=== PATIENT | male | born 1935 | race Two or more races ===

== ENCOUNTER 2023-03-20 00:14 | Inpatient (IN) | payer MEDICARE, BC ==
[2023-03-20] MEDS ORDERED: SODIUM CHLORIDE 0.9% 1,000 ML IV STA (00:57)
[2023-03-20 01:11] LABS: Basophils # (A) 0.1 k/uL (0-0.2); Basophils % (A) 1 %; Eosinophils # (A) 0.5 k/uL (0-0.7); Eosinophils % (A) 5 %; HCT 41.6 % (39.0-53.0); HGB 13.5 gm/dL (13.0-17.5); Lymphocytes # (A) 1.4 k/uL (1.0-4.8); Lymphocytes % (A) 14 %; MCH 32.1 pg (25.0-35.0); MCHC 32.6 g/dL (31.0-37.0); MCV 98.7 fL (80.0-100.0); Mean Platelet Volume 8.1; Monocytes # (A) 0.5 k/uL (0-1.0); Monocytes % (A) 5 %; Neutrophils # (A) 7.2 k/uL (1.3-7.7); Neutrophils % (A) 74 %; Platelet Count 235 k/uL (150-450); RBC 4.22 m/uL (4.30-5.90); RDW 12.8 % (11.5-15.5); WBC 9.7 k/uL (3.8-10.6)
[2023-03-20 01:22] LABS: ALT 26 U/L (4-49); AST 37 U/L (17-59); African American GFR (CKD) 71 (>60 ml/min/1.73 sqM); Albumin 4.2 g/dL (3.5-5.0); Alkaline Phosphatase 90 U/L (38-126); Anion Gap 9 mmol/L; Blood Urea Nitrogen 24 mg/dL (9-20); Calcium 9.6 mg/dL (8.4-10.2); Carbon Dioxide 29 mmol/L (22-30); Chloride 101 mmol/L (98-107); Glucose 115 mg/dL (74-99); Lipase 46 U/L (23-300); Non-African American GFR(CKD) 62 (>60 ml/min/1.73 sqM); Potassium 4.6 mmol/L (3.5-5.1); Sodium 139 mmol/L (137-145); Total Bilirubin 0.4 mg/dL (0.2-1.3); Total Protein 7.4 g/dL (6.3-8.2)
[2023-03-20] MEDS ORDERED: ONDANSETRON 4 MG/2 ML VIAL IVP STA (01:46)
[2023-03-20] MEDS ORDERED: MORPHINE SULFATE 4 MG/ML SYRINGE IVP STA (01:46)
--- NOTE | 2023-03-20 01:48 | ED ---
Abdominal Pain HPI - General Chief Complaint: Abdominal Pain Stated Complaint: Abdominal Pain Time Seen by Provider: 03/20/23 00:57 Source: patient Mode of arrival: EMS Limitations: no limitations - History of Present Illness Initial Comments: The 88-year-old gentleman with asked medical history of prostate cancer which was treated surgically, no other significant medical history, not on any daily medications. Patient presents the ER today with complaint of severe acute diffuse abdominal pain with some nausea but no vomiting. No change in bowel or bladder habits. No recent illness. No sick contacts. - Related Data Allergies Allergy/AdvReac Type Severity Reaction Status Date / Time No Known Allergies Allergy Verified 03/20/23 01:13 Review of Systems ROS Statement: Those systems with pertinent positive or pertinent negative responses have been documented in the HPI. ROS Other: All systems not noted in ROS Statement are negative. Past Medical History Past Medical History: Cancer, Osteoarthritis (OA), Prostate Disorder History of Any Multi-Drug Resistant Organisms: None Reported Past Surgical History: Hernia Repair, Prostate Surgery Additional Past Surgical History / Comment(s): skin cancer Past Psychological History: No Psychological Hx Reported Smoking Status: Never smoker Past Alcohol Use History: None Reported Past Drug Use History: None Reported General Exam Limitations: no limitations General appearance: alert Head exam: Present: atraumatic, normocephalic Eye exam: Present: normal appearance ENT exam: Present: normal exam Respiratory exam: Present: normal lung sounds bilaterally. Absent: respiratory distress Cardiovascular Exam: Present: normal rhythm, bradycardia GI/Abdominal exam: Present: distended, tenderness. Absent: guarding, rebound, rigid Rectal exam: Present: deferred Extremities exam: Present: normal inspection Neurological exam: Present: alert, oriented X3, other (Hard of hearing) Psychiatric exam: Present: normal affect, normal mood Skin exam: Present: warm, dry Course Vital Signs 03/20/23 00:25 Temperature 97.8 F Pulse Rate 57 L Respiratory 18 Rate Blood Pressure 133/73 O2 Sat by Pulse 97 Oximetry Medical Decision Making - Medical Decision Making Was pt. sent in by a medical professional or institution (, PA, CARPET CLEANING TECHNICIAN, urgent care, hospital, or shelter...) When possible be specific @ -[No] Did you speak to anyone other than the patient for history (EMS, parent, family, police, friend...)? What history was obtained from this source @ - Did you review nursing and triage notes (agree or disagree)? Why? @ -[I reviewed and agree with nursing and triage notes] Were old charts reviewed (outside hosp., previous admission, EMS record, old EKG, old radiological studies, urgent care reports/EKG's, shelter records)? Report findings @ -[No old charts were reviewed] Differential Diagnosis (chest pain, altered mental status, abdominal pain women, abdominal pain men, vaginal bleeding, weakness, fever, dyspnea, syncope, headache, dizziness, GI bleed, back pain, seizure, CVA, palpatations, mental health)? @ -Differential Abdominal Pain Men: Appendicitis, cholecystitis, diverticulosis, ischemic bowel, pancreatitis, hepatitis, UTI, gastroenteritis, AAA, incarcerated hernia, bowel obstruction, constipation, inflammatory bowel, hepatitis, peptic ulcer disease, splenic infarction, perforated viscus, testicular torsion, this is not meant to be an all-inclusive list EKG interpreted by me (3pts min.). @ -[As above] X-rays interpreted by me (1pt min.). @ -[None done] CT interpreted by me (1pt min.). @ -Small bowel appears dilated U/S interpreted by me (1pt. min.). @ -[None done] What testing was considered but not performed or refused? (CT, X-rays, U/S, labs)? Why? @ -[None] What meds were considered but not given or refused? Why? @ -[None] Did you discuss the management of the patient with other professionals (professionals i.e. , PA, CARPET CLEANING TECHNICIAN, lab, RT, psych nurse, mental health social worker, route delivery manager, teacher, food safety officer, medical case manager)? Give summary @ -[No] Was smoking cessation discussed for >3mins.? @ -[No] Was critical care preformed (if so, how long)? @ -[No] Were there social determinants of health that impacted care today? How? (Homelessness, low income, unemployed, alcoholism, drug addiction, transportation, low edu. Level, literacy, decrease access to med. care, [facility], rehab)? @ -[No] Was there de-escalation of care discussed even if they declined (Discuss DNR or withdrawal of care, Hospice)? DNR status @ -Code status was discussed patient does want to be DO NOT RESUSCITATE would not want to be placed on life support What co-morbidities impacted this encounter? (DM, HTN, Smoking, COPD, CAD, Cancer, CVA, ARF, Chemo, Hep., AIDS, mental health diagnosis, sleep apnea, morbid obesity)? @ -[None] Was patient admitted / discharged? Hospital course, mention meds given and route, prescriptions, significant lab abnormalities, going to OR and other pertinent info. @ -Admit The patient was seen and evaluated, history is obtained from the patient, history and physical exam are concerning for tender abdominal distention, labs and computed tomography scan were obtained. Observed baseline computed tomogr aphy scan had evidence of a small bowel obstruction. Patient was agreeable to supportive care with NG tube placement observation nothing by mouth diet and IV fluids. Upon discussion of admission patient was clear that he would want to BE made DO NOT RESUSCITATE he would not want to be placed on life support. These orders were placed. Patient was admitted to the hospital with surgeon on consult. Undiagnosed new problem with uncertain prognosis? @ -Yes Drug Therapy requiring intensive monitoring for toxicity (Heparin, Nitro, Insulin, Cardizem)? @ -No Were any procedures done? @ -NG tube placement Diagnosis/symptom? @ -Small bowel obstruction Acute, or Chronic, or Acute on Chronic? @ -Acute Uncomplicated (without systemic symptoms) or Complicated (systemic symptoms)? @ -[default] Side effects of treatment? @ -[No] Exacerbation, Progression, or Severe Exacerbation? @ -[No] Poses a threat to life or bodily function? How? (Chest pain, [place], CO, pneumonia, PE, COPD, DKA, ARF, appy, cholecystitis, CVA, Diverticulitis, Homicidal, Suicidal, threat to staff... and all critical care pts) @ -Yes - Lab Data Result diagrams: 03/20/23 01:01 03/20/23 01:01 Lab Results 03/20/23 03/20/23 03/20/23 Range/Units 01:01 01:01 01:01 WBC 9.7 (3.8-10.6) k/uL RBC 4.22 L (4.30-5.90) m/uL Hgb 13.5 (13.0-17.5) gm/dL Hct 41.6 (39.0-53.0) % MCV 98.7 (80.0-100.0) fL MCH 32.1 (25.0-35.0) pg MCHC 32.6 (31.0-37.0) g/dL RDW 12.8 (11.5-15.5) % Plt Count 235 (150-450) k/uL MPV 8.1 Neutrophils % 74 % Lymphocytes % 14 % Monocytes % 5 % Eosinophils % 5 % Basophils % 1 % Neutrophils # 7.2 (1.3-7.7) k/uL Lymphocytes # 1.4 (1.0-4.8) k/uL Monocytes # 0.5 (0-1.0) k/uL Eosinophils # 0.5 (0-0.7) k/uL Basophils # 0.1 (0-0.2) k/uL Sodium 139 (137-145) mmol/L Potassium 4.6 (3.5-5.1) mmol/L Chloride 101 (98-107) mmol/L Carbon Dioxide 29 (22-30) mmol/L Anion Gap 9 mmol/L BUN 24 H (9-20) mg/dL Creatinine 1.07 (0.66-1.25) mg/dL Est GFR (CKD-EPI)AfAm 71 (>60 ml/min/1.73 sqM) Est GFR (CKD-EPI)NonAf 62 (>60 ml/min/1.73 sqM) Glucose 115 H (74-99) mg/dL Plasma Lactic Acid David 1.6 (0.7-2.0) mmol/L Calcium 9.6 (8.4-10.2) mg/dL Total Bilirubin 0.4 (0.2-1.3) mg/dL AST 37 (17-59) U/L ALT 26 (4-49) U/L Alkaline Phosphatase 90 (38-126) U/L Total Protein 7.4 (6.3-8.2) g/dL Albumin 4.2 (3.5-5.0) g/dL Lipase 46 (23-300) U/L Disposition Clinical Impression: SBO (small bowel obstruction) Disposition: ADMITTED IP TO THIS [facility] Condition: Serious Is patient prescribed a controlled substance at d/c from ED?: No Referrals: Ezequiel Blevins MD [Primary Care Provider] - 1-2 days
--- NOTE | 2023-03-20 02:26 | CT ---
EXAM: CT Abdomen and Pelvis With Intravenous Contrast CLINICAL HISTORY: ITS.REASON CT Reason: abdominal pain TECHNIQUE: Axial computed tomography images of the abdomen and pelvis with intravenous contrast. CTDI is 14.13 mGy and DLP is 763 mGy-cm. This CT exam was performed using one or more of the following dose reduction techniques: automated exposure control, adjustment of the mA and/or kV according to patient size, and/or use of iterative reconstruction technique. COMPARISON: No previous studies. FINDINGS: Lung bases: Subsegmental atelectasis and scarring noted at the lung bases. Heart: Heart is normal in size. Mediastinum: Moderate hiatal hernia. Fluid-filled distal esophagus. The patient may be at risk for aspiration. ABDOMEN: Liver: Fatty liver. Gallbladder and bile ducts: Unremarkable. No calcified stones. No ductal dilation. Pancreas: Unremarkable. No mass. No ductal dilation. 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 Adrenals: Unremarkable. No mass. Kidneys and ureters: Unremarkable. No renal calculus or hydronephrosis. Stomach and bowel: Fluid-filled dilated loops of small bowel are noted extending towards the right lower quadrant compatible with small bowel obstruction. No mucosal thickening. PELVIS: Appendix: Appendix is seen on coronal image 50 and is unremarkable. Bladder: Unremarkable. No mass. Reproductive: Status post prostatectomy. ABDOMEN and PELVIS: Intraperitoneal space: Unremarkable. No free air. No significant fluid collection. Bones/joints: No acute fracture. No dislocation. Soft tissues: Unremarkable. Vasculature: A prominent varix is noted extending to the lingular region seen on series 202 image 16. Portal vein is patent. Atherosclerotic disease of the abdominal aorta without change in caliber. Flow is noted within the celiac, SMA, the renal arteries, and MARCIO. No abdominal aortic aneurysm. Lymph nodes: Unremarkable. No retroperitoneal lymphadenopathy. Other findings: Surgical consultation is advised. IMPRESSION: 1. 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 2. Dilated fluid-filled loops of small bowel extending to the right lower quadrant suggestive of small bowel obstruction. 3. Surgical consultation is highly advised. <MYCVCSECTION> Communications: 03/20/23 02:31 Call Doctor Regarding Above results, called Dr. Wallace on 03/20 02:31 (-05:00)
[2023-03-20] MEDS ORDERED: MIDAZOLAM 1 MG/ML 5 ML VIAL IV STA (02:49)
[2023-03-20] MEDS ORDERED: ONDANSETRON 4 MG/2 ML VIAL IVP PRN (03:06)
[2023-03-20] MEDS ORDERED: MORPHINE SULFATE 4 MG/ML SYRINGE IV PRN (03:06)
[2023-03-20] MEDS ORDERED: NALOXONE 0.4 MG/ML 1 ML VIAL IV PRN (03:06)
[2023-03-20 03:21] LABS: Appearance,Urine Clear (Clear); Bilirubin,Urine Negative (Negative); Blood,Urine Negative (Negative); Color,Urine Light Yellow; Glucose,Urine (UA) Negative (Negative); Ketones,Urine Negative (Negative); Leukocyte Esterase,Urine Negative (Negative); Nitrite,Urine Negative (Negative); Protein,Urine Negative (Negative); Specific Gravity,Urine 1.035 (1.001-1.035); Urobilinogen,Urine <2.0 mg/dL (<2.0)
[2023-03-20] MEDS: SODIUM CHLORIDE 0.9% 1,000 ML IV SCH ×2 (03:55→18:27)
--- NOTE | 2023-03-20 04:49 | XR ---
EXAM: XR Chest, 1 View CLINICAL HISTORY: None. TECHNIQUE: Frontal view of the chest. COMPARISON: No relevant prior studies available. FINDINGS: Lungs: An abnormal density seen in the left lung base. 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 Pleural space: Unremarkable. No pneumothorax or pleural fluid. Heart: Unremarkable. No cardiomegaly. Mediastinum: Unremarkable. Normal mediastinal contour. Bones/joints: No acute findings. Tubes, lines and devices: A gastric tube is seen partially looped in the proximal aspect of the stomach. IMPRESSION: A gastric tube is seen partially looped in the proximal aspect of the stomach.
[2023-03-20] MEDS: PANTOPRAZOLE 40 MG/10 ML VIAL IV SCH (08:25)
[2023-03-20] MEDS ORDERED: IOPAMIDOL CONTRAST (ORAL USE) VIAL PO PRN (11:47)
--- NOTE | 2023-03-20 11:47 | P.GSCN ---
History of Present Illness Consult date: 03/20/23 Reason for Consult: small bowel obstruction History of present illness: this 78-year-old male who was admitted to the hospital complaints of abdominal pain nausea. Patient's computed tomography scan stress of small bowel obstruction. Patient appears history of prostatectomy. Patient has received nasogastric tube decompression overnight. He states he feels better. Past Medical History Past Medical History: Cancer, Osteoarthritis (OA), Prostate Disorder History of Any Multi-Drug Resistant Organisms: None Reported Past Surgical History: Hernia Repair, Prostate Surgery Additional Past Surgical History / Comment(s): skin cancer Past Anesthesia/Blood Transfusion Reactions: No Reported Reaction Past Psychological History: No Psychological Hx Reported Smoking Status: Never smoker Past Alcohol Use History: None Reported Past Drug Use History: None Reported Medications and Allergies Home Medications Medication Instructions Recorded Confirmed Type Multivitamins, Thera [Multivitamin 1 tab PO DAILY 03/20/23 03/20/23 History (formulary)] Allergies Allergy/AdvReac Type Severity Reaction Status Date / Time No Known Allergies Allergy Verified 03/20/23 11:18 Surgical - Exam Vital Signs Temp Pulse Resp BP Pulse Ox 97.8 F 57 L 18 133/73 97 03/20/23 00:25 03/20/23 00:25 03/20/23 00:25 03/20/23 00:25 03/20/23 00:25 - General well developed, well nourished, no distress - Eyes PERRL - ENT normal pinna - Neck no masses - Respiratory normal expansion - Cardiovascular Rhythm: regular - Abdomen Abdomen: soft, non tender Results - Labs 03/20/23 01:01 03/20/23 01:01 Abnormal Lab Results - Last 24 Hours (Table) 03/20/23 03/20/23 Range/Units 01:01 01:01 RBC 4.22 L (4.30-5.90) m/uL BUN 24 H (9-20) mg/dL Glucose 115 H (74-99) mg/dL Diabetes panel 03/20/23 Range/Units 01:01 Sodium 139 (137-145) mmol/L Potassium 4.6 (3.5-5.1) mmol/L Chloride 101 (98-107) mmol/L Carbon Dioxide 29 (22-30) mmol/L BUN 24 H (9-20) mg/dL Creatinine 1.07 (0.66-1.25) mg/dL Glucose 115 H (74-99) mg/dL Calcium 9.6 (8.4-10.2) mg/dL AST 37 (17-59) U/L ALT 26 (4-49) U/L Alkaline Phosphatase 90 (38-126) U/L Total Protein 7.4 (6.3-8.2) g/dL Albumin 4.2 (3.5-5.0) g/dL Calcium panel 03/20/23 Range/Units 01:01 Calcium 9.6 (8.4-10.2) mg/dL Albumin 4.2 (3.5-5.0) g/dL Pituitary panel 03/20/23 Range/Units 01:01 Sodium 139 (137-145) mmol/L Potassium 4.6 (3.5-5.1) mmol/L Chloride 101 (98-107) mmol/L Carbon Dioxide 29 (22-30) mmol/L BUN 24 H (9-20) mg/dL Creatinine 1.07 (0.66-1.25) mg/dL Glucose 115 H (74-99) mg/dL Calcium 9.6 (8.4-10.2) mg/dL Adrenal panel 03/20/23 Range/Units 01:01 Sodium 139 (137-145) mmol/L Potassium 4.6 (3.5-5.1) mmol/L Chloride 101 (98-107) mmol/L Carbon Dioxide 29 (22-30) mmol/L BUN 24 H (9-20) mg/dL Creatinine 1.07 (0.66-1.25) mg/dL Glucose 115 H (74-99) mg/dL Calcium 9.6 (8.4-10.2) mg/dL Total Bilirubin 0.4 (0.2-1.3) mg/dL AST 37 (17-59) U/L ALT 26 (4-49) U/L Alkaline Phosphatase 90 (38-126) U/L Total Protein 7.4 (6.3-8.2) g/dL Albumin 4.2 (3.5-5.0) g/dL Assessment and Plan Assessment: small bowel obstruction most likely due to adhesions. Patient continue nasogastric tube decompression. We'll repeat CAT scan performed in the a.m.
--- NOTE | 2023-03-20 13:50 | P.HPIM ---
History of Present Illness H&P Date: 03/20/23 History of present illness; patient is a 88-year-old gentleman with past medical history significant for prostate cancer, who presented to the ER because of generalized abdominal pain. Patient stated that he was all right yesterday when he started noticing generalized abdominal pain. Pain was intermittent, associated with nausea but no vomiting. Denied any recent change in bowel movements. Denies any blood in the stools. Denies any recent history of change in eating habits. No complaint of increased frequency or burning micturition. Denies any fever or chills at home. Because of this abdominal pain, patient was brought to the ER Initial lab work done in the ER showed WBC 9.7, hemoglobin 13.5, platelet count 235, sodium 139, potassium 4.6, BUN 24, creatinine 1.07, AST 37, ALT 26, UA negative for any infection Chest x-ray done in the ER showed gastric tube seen partially located in the proximal stomach CT abdomen pelvis done showed proximal varix at the left lung base extending into the lingular region. Dilated fluid-filled small bowel extending to the ri ght lower quadrant suggestive for small bowel obstruction After reviewing the computed tomography scan of the abdomen, NG tube was placed Patient admitted to medicine service REVIEW OF SYSTEMS: CONSTITUTIONAL: No fever, no malaise, no fatigue. HEENT: No recent visual problems or hearing problems. Denied any sore throat. CARDIOVASCULAR: No chest pain, orthopnea, PND, no palpitations, no syncope. PULMONARY: No shortness of breath, no cough, no hemoptysis. GASTROINTESTINAL: As mentioned above NEUROLOGICAL: No headaches, no weakness, no numbness. HEMATOLOGICAL: Denies any bleeding or petechiae. GENITOURINARY: Denies any burning micturition, frequency, or urgency. MUSCULOSKELETAL/RHEUMATOLOGICAL: Denies any joint pain, swelling, or any muscle pain. ENDOCRINE: Denies any polyuria or polydipsia. The rest of the 14-point review of systems is negative. PHYSICAL EXAMINATION: GENERAL: The patient is alert and oriented x3, not in any acute distress. Well developed, well nourished. NG tube in place HEENT: Pupils are round and equally reacting to light. EOMI. No scleral icterus. No conjunctival pallor. Normocephalic, atraumatic. No pharyngeal erythema. No thyromegaly. CARDIOVASCULAR: S1 and S2 present. No murmurs, rubs, or gallops. PULMONARY: Chest is clear to auscultation, no wheezing or crackles. ABDOMEN: Soft, nontender, nondistended, sluggish bowel sounds. No palpable organomegaly. MUSCULOSKELETAL: No joint swelling or deformity. EXTREMITIES: No cyanosis, clubbing, or pedal edema. NEUROLOGICAL: Gross neurological examination did not reveal any focal deficits. SKIN: No rashes. Assessment and plan Abdominal pain Small bowel obstruction History of prostate cancer Monitor vital signs Monitor CBC Monitor CMP Continue NG tube Continue antiemetics Continue IV fluids Serial abdominal exams Monitor electrolytes. Keep patient nothing by mouth Gen. surgery consulted Labs and medication were reviewed.. Continue same treatment. Continue with symptomatic treatment. Resume home medication. Monitor labs and vitals. DVT and GI prophylaxis. Further recommendations as per clinical course of the patient Dictation was produced using [employer] dictation software. please excuse any grammatical, word or spelling errors. Past Medical History Past Medical History: Cancer, Osteoarthritis (OA), Prostate Disorder History of Any Multi-Drug Resistant Organisms: None Reported Past Surgical History: Hernia Repair, Prostate Surgery Additional Past Surgical History / Comment(s): skin cancer Past Anesthesia/Blood Transfusion Reactions: No Reported Reaction Past Psychological History: No Psychological Hx Reported Smoking Status: Never smoker Past Alcohol Use History: None Reported Past Drug Use History: None Reported Medications and Allergies Home Medications Medication Instructions Recorded Confirmed Type Multivitamins, Thera [Multivitamin 1 tab PO DAILY 03/20/23 03/20/23 History (formulary)] Allergies Allergy/AdvReac Type Severity Reaction Status Date / Time No Known Allergies Allergy Verified 03/20/23 11:18 Physical Exam Vitals: Vital Signs Temp Pulse Pulse Resp BP BP Pulse Ox 03/20/23 07:00 97.4 F L 63 17 117/61 93 L 03/20/23 03:49 98.2 F 62 18 128/74 98 03/20/23 00:25 97.8 F 57 L 18 133/73 97 Intake and Output 03/19/23 03/20/23 03/20/23 22:59 06:59 14:59 Other: # Voids 0 Weight 71.214 kg Results CBC & Chem 7: 03/20/23 01:01 03/20/23 01:01 Labs: Abnormal Lab Results - Last 24 Hours (Table) 03/20/23 03/20/23 Range/Units 01:01 01:01 RBC 4.22 L (4.30-5.90) m/uL BUN 24 H (9-20) mg/dL Glucose 115 H (74-99) mg/dL Thrombosis Risk Factor Assmnt - Choose All That Apply Any of the Below Risk Factors Present?: No Other Risk Factors: No Each Risk Factor Represents 3 Points: Age 75 years or older Thrombosis Risk Factor Assessment Total Risk Factor Score: 3 Thrombosis Risk Factor Assessment Level: Very Low Risk
[2023-03-21] MEDS: PANTOPRAZOLE 40 MG/10 ML VIAL IV SCH (09:26)
[2023-03-21] MEDS: SODIUM CHLORIDE 0.9% 1,000 ML IV SCH (09:26)
[2023-03-21 10:59] LABS: ALT 16 U/L (10-49); AST 24 U/L (14-35); Albumin 3.3 g/dL (3.8-4.9); Albumin/Globulin Ratio 1.43 Ratio (1.60-3.17); Alkaline Phosphatase 82 U/L (41-126); BUN/Creat Ratio 16.44 Ratio (12.00-20.00); Blood Urea Nitrogen 14.8 mg/dL (9.0-27.0); Carbon Dioxide 24.4 mmol/L (21.6-31.8); Chloride 108 mmol/L (96-109); Globulin 2.3 g/dL (1.6-3.3); Glucose 86 mg/dL (70-110); Potassium 4.3 mmol/L (3.5-5.5); Sodium 142 mmol/L (135-145); Total Bilirubin 0.7 mg/dL (0.3-1.2); Total Protein 5.6 g/dL (6.2-8.2)
[2023-03-21 11:00] LABS: Basophils # (A) 0.07 X 10*3/uL (0.00-0.10); Eosinophils # (A) 0.22 X 10*3/uL (0.04-0.35); HCT 36.7 % (39.6-50.0); HGB 12.2 g/dL (13.0-17.0); Lymphocytes # (A) 1.33 X 10*3/uL (0.90-5.00); Lymphocytes % (A) 18.2 %; MCH 32.4 pg (27.0-32.0); MCHC 33.2 g/dL (32.0-37.0); MCV 97.6 FL (80.0-97.0); Mean Platelet Volume 10.8 FL (9.5-12.2); Monocytes # (A) 0.51 X 10*3/uL (0.20-1.00); NRBC Per 100 WBC 0 X 10*3/uL (0.00-0.01); Neutrophils # (A) 5.17 X 10*3/uL (1.80-7.70); Neutrophils % (A) 70.5 %; Platelet Count 220 X 10*3/uL (140-440); RBC 3.76 X 10*6/uL (4.40-5.60); RDW 13.2 % (11.5-14.5); WBC 7.32 X 10*3/uL (4.50-10.00)
--- NOTE | 2023-03-21 12:33 | P.PN ---
Subjective Progress Note Date: 03/21/23 patient is a 88-year-old gentleman with past medical history significant for prostate cancer, who presented to the ER because of generalized abdominal pain. Patient stated that he was all right yesterday when he started noticing generalized abdominal pain. Pain was intermittent, associated with nausea but no vomiting. Denied any recent change in bowel movements. Denies any blood in the stools. Denies any recent history of change in eating habits. No complaint of increased frequency or burning micturition. Denies any fever or chills at home. Because of this abdominal pain, patient was brought to the ER Initial lab work done in the ER showed WBC 9.7, hemoglobin 13.5, platelet count 235, sodium 139, potassium 4.6, BUN 24, creatinine 1.07, AST 37, ALT 26, UA negative for any infection Chest x-ray done in the ER showed gastric tube seen partially located in the proximal stomach CT abdomen pelvis done showed proximal varix at the left lung base extending into the lingular region. Dilated fluid-filled small bowel extending to the right lower quadrant suggestive for small bowel obstruction After reviewing the computed tomography scan of the abdomen, NG tube was placed Patient admitted to medicine service 03/21. Patient seen and examined. Patient is passing gas. No bowel movement yet. Denies abdominal pain. NG tube in place REVIEW OF SYSTEMS: CONSTITUTIONAL: No fever, no malaise,. CARDIOVASCULAR: No chest pain, no palpitations, no syncope. PULMONARY: No shortness of breath, no cough, GASTROINTESTINAL: As mentioned above NEUROLOGICAL: No headaches, no weakness, PHYSICAL EXAMINATION: GENERAL: The patient is alert and oriented x3, not in any acute distress. Well developed, well nourished. HEENT: Pupils are round and equally reacting to light. EOMI. No scleral icterus. No conjunctival pallor. Normocephalic, atraumatic. No pharyngeal erythema. No thyromegaly. CARDIOVASCULAR: S1 and S2 present. No murmurs, rubs, or gallops. PULMONARY: Chest is clear to auscultation, no wheezing or crackles. ABDOMEN: Soft, nontender, nondistended, normoactive bowel sounds. No palpable organomegaly. MUSCULOSKELETAL: No joint swelling or deformity. EXTREMITIES: No cyanosis, clubbing, or pedal edema. NEUROLOGICAL: Gross neurological examination did not reveal any focal deficits. SKIN: No rashes. Assessment and plan Abdominal pain Small bowel obstruction History of prostate cancer Monitor vital signs Monitor CBC Monitor CMP Continue NG tube Continue antiemetics Continue IV fluids Serial abdominal exams Monitor electrolytes. Keep patient nothing by mouth Gen. surgery following Labs and medication were reviewed.. Continue same treatment. Continue with symptomatic treatment. Resume home medication. Monitor labs and vitals. DVT and GI prophylaxis. Further recommendations as per clinical course of the patient Dictation was produced using [employer] dictation software. please excuse any grammatical, word or spelling errors. Objective - Vital Signs Vital signs: Vital Signs Temp 98.4 F 03/21/23 08:00 Pulse 61 03/21/23 08:00 Resp 14 03/21/23 08:00 BP 138/61 03/21/23 08:00 Pulse Ox 94 L 03/21/23 08:00 FiO2 Intake & Output 03/20/23 03/21/23 03/21/23 18:59 06:59 18:59 Output Total 900 275 Balance -900 -275 Output: Gastric Drainage 300 Urine 600 275 Other: Voiding Method Urinal # Voids 300 - Labs CBC & Chem 7: 03/21/23 06:32 03/21/23 06:32
--- NOTE | 2023-03-21 12:36 | P.PN ---
Subjective Progress Note Date: 03/21/23 CHIEF COMPLAINT: Small bowel obstruction HISTORY OF PRESENT ILLNESS: The patient denies any abdominal pain. Denies any nausea. He is having a small amount of flatus. NG tube with 300 mL output yesterday. Afebrile. WBC 7.3 hgb 12.2 platelets 220 sodium 142 potassium is 4.3 creatinine 0.9 PHYSICAL EXAM: VITAL SIGNS: Reviewed. GENERAL: Well-developed in no acute distress. ABDOMEN: Soft. Nondistended. Nontender. NEUROLOGIC: Alert and oriented. Cranial nerves II through XII grossly intact. ASSESSMENT: 1. Small bowel obstruction likely due to adhesions PLAN: -Repeat Computed tomography scan abdomen and pelvis with oral contrast scheduled for today -Continue NG tube for decompression -Keep patient nothing by mouth -Encourage patient to increase activity level Physician Terminal Operations Manager note has been reviewed by physician. Signing provider agrees with the documented findings, assessment, and plan of care. Objective - Vital Signs Vital signs: Vital Signs Temp 98.4 F 03/21/23 08:00 Pulse 61 03/21/23 08:00 Resp 14 03/21/23 08:00 BP 138/61 03/21/23 08:00 Pulse Ox 94 L 03/21/23 08:00 FiO2 Intake & Output 03/20/23 03/21/23 03/21/23 18:59 06:59 18:59 Output Total 900 275 Balance -900 -275 Output: Gastric Drainage 300 Urine 600 275 Other: Voiding Method Urinal # Voids 300 - Labs CBC & Chem 7: 03/21/23 06:32 03/21/23 06:32
--- NOTE | 2023-03-21 14:47 | XR ---
EXAMINATION TYPE: XR chest 1V confirm line plcmt DATE OF EXAM: 03/21/2023 2:14 PM CLINICAL INDICATION:Male, 88 years old with history of NG tube Placement; COMPARISON: CT 03/20/2023 TECHNIQUE: XR chest 1V confirm line plcmt Frontal view of the chest. FINDINGS: Lungs/Pleura: There is no evidence of pleural effusion, focal consolidation, or pneumothorax. Left l ower lung is vascular malformation is visualized. Increased lucency in the lung apices. Pulmonary vascularity: Unremarkable. Heart/mediastinum: Cardiomediastinal silhouette is unremarkable. Musculoskeletal: No acute osseous pathology. Other findings: None Lines/Tubes: Nasogastric tube with side-port projecting over the distal esophagus. IMPRESSION: 1. Nasogastric tube and the distal esophagus consider advancement of at least 11 cm for optimal plac ement. 2. 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 3. COPD changes.
[2023-03-21] MEDS: IOPAMIDOL CONTRAST (ORAL USE) VIAL PO PRN ×2 (15:30→16:30)
--- NOTE | 2023-03-21 18:08 | CT ---
EXAMINATION TYPE: CT abdomen pelvis w con CT DLP: 563.4 mGycm, Automated exposure control for dose reduction was used. DATE OF EXAM: 03/21/2023 5:25 PM COMPARISON: CT abdomen pelvis most recent from 03/20/2023. CLINICAL INDICATION:Male, 88 years old with history of small bowel obstruction; SBO TECHNIQUE: Axial CT of the ;CT abdomen pelvis w con;Sagittal and coronal reformats were created on a separate workstation. Contrast used:100 mL of Isovue 300 with IV Contrast, (none if empty) Oral contrast used: with Oral Contrast (none if empty) FINDINGS: LOWER CHEST: Redemonstration of suspected left lingula vascular malformation partially visualized. Tr trina bilateral pleural effusions. Atherosclerosis of the coronary arteries. ABDOMEN LIVER: Unremarkable GALLBLADDER AND BILE DUCTS: Layering increased density possibly relating to vicarious excretion of co ntrast versus gallstones. PANCREAS: Unremarkable. SPLEEN: Unremarkable. ADRENAL GLANDS: Unremarkable. KIDNEYS AND URETERS: No evidence of hydronephrosis or renal calculus. The ureters are unremarkable. PELVIS BLADDER: Unremarkable REPRODUCTIVE: Unremarkable. ABDOMEN & PELVIS STOMACH AND BOWEL: Oral contrast extends to the splenic flexure of the colon. No evidence of bowel ob struction. Small hiatal hernia. The appendix is normal. Moderate amount stool in the rectum. Nasogast frank tube terminating in the gastric lumen. PERITONEUM/RETROPERITONEUM: No evidence of pneumoperitoneum or free fluid. VASCULATURE: Mild atherosclerotic calcifications are present throughout the abdominal aorta and its b ranches. No evidence of aortic aneurysm. MUSCULOSKELETAL: No acute osseous abnormalities LYMPH NODES: No gross evidence for lymphadenopathy. SOFT TISSUE/ABDOMINAL WALL: Unremarkable IMPRESSION: 1. There is no evidence of small bowel obstruction oral contrast extends to the splenic flexure of t he colon. 2. Small hiatal hernia. 3. Nasogastric tube in appropriate position. 4. 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
[2023-03-22] MEDS: SODIUM CHLORIDE 0.9% 1,000 ML IV SCH ×2 (01:30→08:42)
[2023-03-22 08:30] VITALS: RESP 18
[2023-03-22] MEDS: PANTOPRAZOLE 40 MG/10 ML VIAL IV SCH (08:39)
--- NOTE | 2023-03-22 14:03 | P.PN ---
Subjective Progress Note Date: 03/22/23 CHIEF COMPLAINT: Small bowel obstruction HISTORY OF PRESENT ILLNESS: Patient sitting up in bed. He tolerated the full liquids. He does report some mild bloating after eating. Denies any abdominal pain. Denies any nausea or vomiting. He is having a small amount of flatus. No bowel movement yet. Computed tomography scan abdomen and pelvis from yesterday has shows no evidence of small bowel obstruction oral contrast extends to the splenic flexure of the colon. NG tube was discontinued yesterday. Afebrile. WBC is 7.32 PHYSICAL EXAM: VITAL SIGNS: Reviewed. GENERAL: Well-developed in no acute distress. ABDOMEN: Soft. Nondistended. Nontender. NEUROLOGIC: Alert and oriented. Cranial nerves II through XII grossly intact. ASSESSMENT: 1. Small bowel obstruction likely due to adhesions. Resolving with conservative management PLAN: -Patient can be discharged from surgical standpoint -Recommend to slowly advance diet as tolerated -Encourage patient to ambulate Physician Bindery Machine Setter note has been reviewed by physician. Signing provider agrees with the documented findings, assessment, and plan of care. Objective - Vital Signs Vital signs: Vital Signs Temp 97.8 F 03/22/23 08:00 Pulse 75 03/22/23 08:00 Resp 18 03/22/23 08:00 BP 138/65 03/22/23 08:00 Pulse Ox 94 L 03/22/23 08:00 FiO2 Intake & Output 03/21/23 03/22/23 03/22/23 18:59 06:59 18:59 Intake Total 180 Output Total 300 Balance -300 180 Intake: Oral 180 Output: Urine 300 Other: Voiding Method Toilet Urinal # Voids 3 - Labs CBC & Chem 7: 03/21/23 06:32 03/21/23 06:32 Labs: Abnormal Lab Results - Last 24 Hours (Table) 03/21/23 03/21/23 Range/Units 06:32 06:32 RBC 3.76 L (4.40-5.60) X 10*6/uL Hgb 12.2 L (13.0-17.0) g/dL Hct 36.7 L (39.6-50.0) % MCV 97.6 H (80.0-97.0) FL MCH 32.4 H (27.0-32.0) pg Total Protein 5.6 L (6.2-8.2) g/dL Albumin 3.3 L (3.8-4.9) g/dL Albumin/Globulin Ratio 1.43 L (1.60-3.17) Ratio
[2023-03-22 14:39] VITALS: BP 128/68; PULSE 59; TEMP 97.4
--- NOTE | 2023-03-23 16:49 | P.DS ---
Providers Date of admission: 03/20/23 03:06 Attending physician: Zeinab Olson Consults: 03/20/23 03:06 Consult Physician Urgent Consulting Provider: Josh Montaño Consult Reason/Comments: sbo Do you want consulting provider notified?: Yes, Notify in am Primary care physician: Ezequiel Blevins Hospital Course: Final Diagnosis Abdominal pain Small bowel obstruction resolved History of prostate cancer DO NOT RESUSCITATE/DO NOT INTUBATE Discharge Disposition Patient is stable for discharge home. Patient recommended to continue on bowel regimen daily to avoid constipation. Follow up with PCP. Hospital Course This is an 88-year-old gentleman with past medical history significant for prostate cancer, who presented to the ER because of generalized abdominal pain. Pain was intermittent, associated with nausea but no vomiting. Denied any recent change in bowel movements. Denies any blood in the stools. Denies any recent history of change in eating habits. No complaint of increased frequency or burning micturition. Denies any fever or chills at home. Because of this abdominal pain, patient was brought to the ER. CT abdomen pelvis done showed proximal varix at the left lung base extending into the lingular region. Dilated fluid-filled small bowel extending to the right lower quadrant suggestive for small bowel obstruction. Initial lab work done in the ER showed WBC 9.7, hemoglobin 13.5, platelet count 235, sodium 139, potassium 4.6, BUN 24, creatinine 1.07, AST 37, ALT 26. UA negative for any infection. NG tube was placed for decompression. Patient was monitored for bowel rest. Had repeat abdominal pelvis CT done showing no evidence of small bowel obstruction oral contrast extends to the splenic flexure of the colon. Small hiatal hernia. 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 Patient did have a large BM. Abdomen is soft and nontender he was started on diet. He has no pain, he has no chest pain, no shortness of breath, no fever or chills. He will be discharged home. Review of Systems Constitutional: Denied any fatigue denied any fever. Cardio vascular: denied any chest pain, palpitations Gastrointestinal: denied any nausea, vomiting, diarrhea Pulmonary: Denied any shortness of breath cough Neurologic denied any new focal deficits All inpatient medications were reviewed and appropriate changes in these medications as dictated in the interval history and assessment and plan. PHYSICAL EXAMINATION: GENERAL: The patient is alert and oriented x3, not in any acute distress. Well developed, well nourished. HEENT: Pupils are round and equally reacting to light. EOMI. No scleral icterus. No conjunctival pallor. Normocephalic, atraumatic. No pharyngeal erythema. No thyromegaly. CARDIOVASCULAR: S1 and S2 present. No murmurs, rubs, or gallops. PULMONARY: Chest is clear to auscultation, no wheezing or crackles. ABDOMEN: Soft, nontender, nondistended, normoactive bowel sounds. No palpable organomegaly. MUSCULOSKELETAL: No joint swelling or deformity. EXTREMITIES: No cyanosis, clubbing, or pedal edema. NEUROLOGICAL: Gross neurological examination did not reveal any focal deficits. SKIN: No rashes. Please see medication reconciliation for a list of current medication. Thank you for allowing us to participate in the care of this patient. The impression and plan of care has been dictated by Ann Silva Nurse Practitioner as directed. Dr. Zhaida MD I have performed a history and physical examination and medical decision making of this patient, discussed the same with the dictator, and agree with the dictators assessment and plan as written, documented as a scribe. Based on total visit time, I have performed more than 50% of this visit. Patient Condition at Discharge: Stable Plan - Discharge Summary Discharge Rx Participant: No New Discharge Prescriptions: New polyethylene glycoL 3350 [Miralax] 17 gm PO DAILY #1 packet Continue Multivitamins, Thera [Multivitamin (formulary)] 1 tab PO DAILY Discharge Medication List Multivitamins, Thera [Multivitamin (formulary)] 1 tab PO DAILY 03/20/23 [History] polyethylene glycoL 3350 [Miralax] 17 gm PO DAILY #1 packet 03/22/23 [Rx] Follow up Appointment(s)/Referral(s): Ezequiel Blevins MD [Primary Care Provider] - 1-2 days Josh Montaño MD [STAFF PHYSICIAN] - 1 Week Patient Instructions/Handouts: Constipation (DC), Bowel Obstruction (DC) Activity/Diet/Wound Care/Special Instructions: Recommend to continue on miralax daily to avoid constipation. Follow up with your primary provider in 1 to 2 days. Advance diet slowly Discharge Disposition: HOME SELF-CARE
== END 2023-03-22 14:55 | disposition home or self-care (01) | DRG 390 ==
LOC: EC 00:14 → 6NMEDSUR 03:06 → 4L1N 04:10 → 6NMEDSUR 04:10
PROVIDERS: ADMIT Hospitalist; ATTEND Hospitalist
PROC: 0D9670Z Drainage of Stomach with Drainage Device, Via Natural or Artificial Opening (ICD-10-PCS; principal; 2023-03-20)
DX: K56.50 Intestinal adhesions [bands], unspecified as to partial versus complete obstruction (principal); K44.9 Diaphragmatic hernia without obstruction or gangrene; Z66 Do not resuscitate; Z90.79 Acquired absence of other genital organ(s); Z85.828 Personal history of other malignant neoplasm of skin; Z85.46 Personal history of malignant neoplasm of prostate; Z28.310 Unvaccinated for COVID-19
CPT/HCPCS: 36415; 74177; 80053; 81003; 83605; 83690; 85025; 96361; 96374; 96375; 99285

== ENCOUNTER → 2023-04-08 | Outpatient (CLI) | payer MEDICARE, BC ==
--- NOTE | 2023-04-08 12:33 | US ---
EXAMINATION TYPE: US gallbladder DATE OF EXAM: 04/08/2023 COMPARISON: 03/21/2023 CLINICAL INDICATION: Male, 88 years old with history of K80.20 GALLBLADDER W/O CHOLECYSTITIS; contra st vs. GB stones on prior CT TECHNIQUE: Multiple sonographic images of the right upper quadrant are obtained. FINDINGS: EXAM MEASUREMENTS: Liver Length: 14.2 cm Gallbladder Wall: 0.2 cm CBD: 0.3 cm Right Kidney: 9.1x4.2x4.0 cm Pancreas: Obscured by bowel gas Liver: wnl Gallbladder: wnl Evidence for sonographic Sutherland's sign: No CBD: wnl Right Kidney: No hydronephrosis or masses seen exam limited by overlying bowel gas IMPRESSION: No evidence for acute process. High density on prior CT is compatible with vicarious excr etion of contrast.
== END | disposition home or self-care (01) ==
LOC: RADUSWWP 09:55
PROVIDERS: ATTEND Surgery
DX: K80.20 Calculus of gallbladder without cholecystitis without obstruction (principal)
CPT/HCPCS: 76705

== ENCOUNTER → 2023-04-12 | Outpatient (CLI) | payer MEDICARE, BC ==
--- NOTE | 2023-04-12 11:19 | CA ---
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 ICD-9 Codes: Rhythm: Patient History: Cardiac Medications: FAMOTIDINE Medications in past 24 hours: Contrast: Stress Results Protocol: Manual Treadmill Total dose(mL): Exercise Duration (min:sec): 10:[address] Depression (mm): Angina Score: Ch Score: METS: 3.3 Resting HR: 57 Resting BP: 109 / 58 Peak HR: 116 Peak BP: 147 / 66 Max Predicted HR: 131 89 % Max Predicted HR Target HR: 111 Double Product: 43251 Stress Summary: The patient's target heart rate was achieved BP Response: Reason for Termination: Reached target heart rate or work-load Cardiac Symptoms: ECG Analysis Resting ECG: Normal sinus rhythm, normal ECG Stress ECG: No abnormal ST/T wave changes with exercise Arrhythmia: None Echo Analysis Resting Echo: Normal resting echocardiogram. Peak Echo Analysis: Normal wall thickening and motion MEASUREMENTS (Male/Female) Normal Values CONCLUSIONS Normal left electrocardiographic response to exercise Normal stress echocardiogram with no evidence of stress induced ischemia Dr. Mounika Bailey MD (Electronically Signed) Final Date: 12 April 2023 11:19
--- NOTE | 2023-04-12 12:33 | CA ---
Transthoracic Echo Report Name: Donte Koehler Age: 88 Gender: M : 1935 Exam Date: 04/12/2023 10:46 Exam Location: [place] [facility] Ht (in): 70 Wt (lb): 155 Ordering Physician: Ezequiel Blevins MD Attending/Referring Phys: Yee Barksdale [facility] Motion Study Technician Claudia Caro [facility] Procedure CPT: Indications: I44.0 arterioventricular block Cardiac Hx: Technical Quality: Fair Contrast 1: Total Dose (mL): Contrast 2: Total Dose (mL): MEASUREMENTS (Male / Female) Normal Values 2D ECHO LV Diastolic Diameter PLAX 4.3 cm 4.2 - 5.9 / 3.9 - 5.3 cm LV Systolic Diameter PLAX 3.1 cm IVS Diastolic Thickness 0.8 cm 0.6 - 1.0 / 0.6 - 0.9 cm LVPW Diastolic Thickness 0.8 cm 0.6 - 1.0 / 0.6 - 0.9 cm LV Relative Wall Thickness 0.4 LVOT Diameter 2.0 cm M-MODE Aortic Root Diameter MM 2.6 cm LA Systolic Diameter MM 3.9 cm LA Ao Ratio MM 1.5 AV Cusp Separation MM 1.8 cm DOPPLER AV Peak Velocity 178.2 cm/s AV Peak Gradient 12.7 mmHg AV Mean Velocity 135.2 cm/s AV Mean Gradient 7.9 mmHg AV Velocity Time Integral 41.5 cm AI Peak Velocity 309.7 cm/s AI Peak Gradient 38.4 mmHg AI Pressure Half Time 524.4 ms LVOT Peak Velocity 103.3 cm/s LVOT Peak Gradient 4.3 mmHg LVOT Velocity Time Integral 23.4 cm LVOT Stroke Volume 71.0 cm??? LVOT Stroke Volume Index 37.9 ml/m??? LVOT Cardiac Index 2707.9 cm???/min???m??? AV Area Cont Eq vti 1.7 cm??? AV Area Cont Eq pk 1.8 cm??? Mitral E Point Velocity 65.5 cm/s Mitral A Point Velocity 122.8 cm/s Mitral E to A Ratio 0.5 MV Deceleration Time 249.5 ms LV E' Lateral Velocity 8.4 cm/s Mitral E to LV E' Lateral Ratio 7.8 LV E' Septal Velocity 8.1 cm/s Mitral E to LV E' Septal Ratio 8.1 TR Peak Velocity 261.9 cm/s TR Peak Gradient 27.4 mmHg Right Atrial Pressure 15.0 mmHg Pulmonary Artery Systolic Pressu 42.4 mmHg Right Ventricular Systolic Press 42.4 mmHg FINDINGS Left Ventricle Left ventricular wall thickness normal. Left ventricular cavity size normal.normal left ventricular wall motion. Left ventricular ejection fraction is estimated at 55-60 %. Normal left ventricular diastolic filling pattern. Right Ventricle Normal right ventricular size. Mild pulmonary hypertension. Right Atrium Mild right atrial dilatation. Left Atrium Mild left atrial dilatation. Mitral Valve Mitral valve thickened. Moderate eccentric mitral regurgitation.mitral annular calcification. Aortic Valve Moderate aortic sclerosis with mild aortic regurgitation Tricuspid Valve Structurally normal tricuspid valve. Mild to Moderate tricuspid regurgitation. Pulmonic Valve Pulmonic valve not well visualized. Pericardium No pericardial effusion. Aorta Normal size aortic root. CONCLUSIONS 1. Normal left ventricle size and systolic function 2. Moderate eccentric mitral regurgitation with mild to moderate tricuspid regurgitation and mild pulmonary hypertension 3. Mild aortic regurgitation Previewed by: Dr. Mounika Bailey MD (Electronically Signed) Final Date: 12 April 2023 12:32
== END | disposition home or self-care (01) ==
LOC: RADNMMAIN 09:55 → MERGE 10:00
PROVIDERS: ATTEND Family Medicine
DX: I44.0 Atrioventricular block, first degree (principal); I27.20 Pulmonary hypertension, unspecified; I34.0 Nonrheumatic mitral (valve) insufficiency; I35.1 Nonrheumatic aortic (valve) insufficiency
CPT/HCPCS: 93306; 93351

== ENCOUNTER 2023-09-13 12:29 | Emergency (ER) | payer MEDICARE, BC ==
--- NOTE | 2023-09-13 13:23 | ED ---
General Adult HPI - General Chief complaint: Syncope Stated complaint: fainting, dizzy,nausea Time Seen by Provider: 09/13/23 13:00 Source: patient, RN notes reviewed, old records reviewed Mode of arrival: ambulatory Limitations: no limitations - History of Present Illness Initial comments: This is an 88-year-old male who presents emergency department stating he was doing some stuff with his brother and he became very dizzy and fell against his brother and onto the ground. Patient states he never actually lost consciousness but he was so dizzy he could not stand. Patient states since then has been very nauseated. Patient states movement seems to make it worse and he feels a lot better if he lays here with his eyes closed. Patient denies any numbness or focal weakness. Patient has a headache patient denies any chest pain difficulty breathing or shortness of breath. He denies any palpitations. Patient has any recent fever chills or cough. Patient denies any nausea vomiting diarrhea. Patient has abdominal pain. Patient states has been eating and drinking normally. Patient states he has not experienced this in the past. - Related Data Home Medications Medication Instructions Recorded Confirmed Multivitamins, Thera [Multivitamin] 1 tab PO DAILY 05/11/16 04/22/22 Acetaminophen Tab [Tylenol Tab] 650 mg PO Q4H PRN 04/22/22 04/22/22 Multivitamins, Thera [Multivitamin 1 tab PO DAILY 03/20/23 03/20/23 (formulary)] Previous Rx's Medication Instructions Recorded polyethylene glycoL 3350 [Miralax] 17 gm PO DAILY #1 packet 03/22/23 Meclizine [Antivert] 25 mg PO TID #20 tab 09/13/23 Allergies Allergy/AdvReac Type Severity Reaction Status Date / Time No Known Allergies Allergy Verified 09/13/23 12:40 Review of Systems ROS Statement: Those systems with pertinent positive or pertinent negative responses have been documented in the HPI. ROS Other: All systems not noted in ROS Statement are negative. Past Medical History Past Medical History: Cancer, Osteoarthritis (OA), Prostate Disorder Additional Past Medical History / Comment(s): 05-11-16 fell on ice, fx lt wrist. 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 Patient is nontoxic and well- hydrated and is in mild distress. ENT: Neck is soft and supple. No significant lymphadenopathy is noted. Oropharynx is clear. Moist mucous membranes. Neck has full range of motion without eliciting any pain. EYES: The sclera were anicteric and conjunctiva were pink and moist. Extraocular movements were intact and pupils were equal round and reactive to light. Eyelids were unremarkable. PULMONARY: Unlabored respirations. Good breath sounds bilaterally. No audible rales rhonchi or wheezing was noted. CARDIOVASCULAR: There is a regular rate and rhythm without any murmurs gallops or rubs. ABDOMEN: Soft and nontender with normal bowel sounds. No palpable organomegaly was noted. There is no palpable pulsatile mass. SKIN: Skin is clear with no lesions or rashes and otherwise unremarkable. NEUROLOGIC: Patient is alert and oriented x3. Cranial nerves II through XII are grossly intact. Motor and sensory are also intact. Normal speech, volume and content. Symmetrical smile.. Nose testing is normal bilaterally MUSCULOSKELETAL: Normal extremities with adequate strength and full range of motion. LYMPHATICS: No significant lymphadenopathy is noted PSYCHIATRIC: Normal psychiatric evaluation. Limitations: no limitations Course Vital Signs 09/13/23 09/13/23 12:37 16:07 Temperature 97.7 F 97.6 F Pulse Rate 52 L 67 Respiratory 18 18 Rate Blood Pressure 144/70 139/70 O2 Sat by Pulse 100 97 Oximetry Medical Decision Making - Medical Decision Making EKG is interpreted by myself. EKG shows a sinus bradycardia 47 bpm RI interval 181 QRS 110 QT interval is 455 QTc is 420. Patient's EKG shows no ST segment elevation or depression. Was pt. sent in by a medical professional or institution (, PA, DECORATIVE ENGRAVER, urgent care, hospital, or halfway...) When possible be specific @ -No Did you speak to anyone other than the patient for history (EMS, parent, family, police, friend...)? What history was obtained from this source @ -No Did you review nursing and triage notes (agree or disagree)? Why? @ -I reviewed and agree with nursing and triage notes Were old charts reviewed (outside hosp., previous admission, EMS record, old EKG, old radiological studies, urgent care reports/EKG's, halfway records)? Report findings @ -I reviewed patient's old EKG and compared to today's EKG. Patient is EKG today showed a heart rate of 47 when in the past it was significantly higher. Differential Diagnosis (chest pain, altered mental status, abdominal pain women, abdominal pain men, vaginal bleeding, weakness, fever, dyspnea, syncope, headache, dizziness, GI bleed, back pain, seizure, CVA, palpatations, mental health, musculoskeletal)? @ -Differential Dizziness: Benign paroxysmal positional Vertigo, Menieres disease, otitis media, acoustic neuroma, vertebrobasilar insufficiency, cerebellar stroke, encephalitis, hypovolemic, arrhythmia, coronary artery syndrome, anemia, this is not meant to be an all-inclusive list EKG interpreted by me (3pts min.). @ -As above X-rays interpreted by me (1pt min.). @ -Chest x-ray shows no acute abnormality CT interpreted by me (1pt min.). @ -CT of the brain shows no acute abnormality U/S interpreted by me (1pt. min.). @ -None done What testing was considered but not performed or refused? (CT, X-rays, U/S, labs)? Why? @ -None What meds were considered but not given or refused? Why? @ -None Did you discuss the management of the patient with other professionals (professionals i.e. Dr., PA, DECORATIVE ENGRAVER, lab, RT, psych nurse, rn social work, front desk associate, teacher, security officer, watch caser)? Give summary @ -No Was smoking cessation discussed for >3mins.? @ -No Was critical care preformed (if so, how long)? @ -No Were there social determinants of health that impacted care today? How? (Homelessness, low income, unemployed, alcoholism, drug addiction, transportation, low edu. Level, literacy, decrease access to med. care, alf, rehab)? @ -No Was there de-escalation of care discussed even if they declined (Discuss DNR or withdrawal of care, Hospice)? DNR status @ -No What co-morbidities impacted this encounter? (DM, HTN, Smoking, COPD, CAD, Cancer, CVA, ARF, Chemo, Hep., AIDS, mental health diagnosis, sleep apnea, morbid obesity)? @ -None Was patient admitted / discharged? Hospital course, mention meds given and route, prescriptions, significant lab abnormalities, going to OR and other pertinent info. @ -Patient received Reglan for nausea and Antivert for the dizziness. I went back and reevaluated the patient he was feeling considerably better. Patient states that he has a history of vertigo Undiagnosed new problem with uncertain prognosis? @ -No Drug Therapy requiring intensive monitoring for toxicity (Heparin, Nitro, Insulin, Cardizem)? @ -No Were any procedures done? @ -No Diagnosis/symptom? @ -Vertigo Acute, or Chronic, or Acute on Chronic? @ -Acute Uncomplicated (without systemic symptoms) or Complicated (systemic symptoms)? @ -Complicated Side effects of treatment? @ -No Exacerbation, Progression, or Severe Exacerbation? @ -No Poses a threat to life or bodily function? How? (Chest pain, [place], [place], pneumonia, PE, COPD, DKA, ARF, appy, cholecystitis, CVA, Diverticulitis, Homicidal, Suicidal, threat to staff... and all critical care pts) @ -No - Lab Data Result diagrams: 09/13/23 13:56 09/13/23 13:56 Lab Results 09/13/23 09/13/23 09/13/23 Range/Units 13:56 13:56 13:56 WBC 8.8 (3.8-10.6) k/uL RBC 3.93 L (4.30-5.90) m/uL Hgb 12.8 L (13.0-17.5) gm/dL Hct 39.0 (39.0-53.0) % MCV 99.2 (80.0-100.0) fL MCH 32.7 (25.0-35.0) pg MCHC 32.9 (31.0-37.0) g/dL RDW 12.9 (11.5-15.5) % Plt Count 190 (150-450) k/uL MPV 8.6 Neutrophils % 87 % Lymphocytes % 8 % Monocytes % 3 % Eosinophils % 1 % Basophils % 1 % Neutrophils # 7.6 (1.3-7.7) k/uL Lymphocytes # 0.7 L (1.0-4.8) k/uL Monocytes # 0.3 (0-1.0) k/uL Eosinophils # 0.1 (0-0.7) k/uL Basophils # 0.1 (0-0.2) k/uL PT 11.5 (10.0-12.5) sec INR 1.1 (<1.2) APTT 23.3 (22.0-30.0) sec Sodium 137 (137-145) mmol/L Potassium 4.7 (3.5-5.1) mmol/L Chloride 107 (98-107) mmol/L Carbon Dioxide 28 (22-30) mmol/L Anion Gap 2 mmol/L BUN 22 H (9-20) mg/dL Creatinine 0.80 (0.66-1.25) mg/dL Est GFR (CKD-EPI)AfAm >90 (>60 ml/min/1.73 sqM) Est GFR (CKD-EPI)NonAf 80 (>60 ml/min/1.73 sqM) Glucose 115 H (74-99) mg/dL Calcium 8.9 (8.4-10.2) mg/dL Magnesium 2.0 (1.6-2.3) mg/dL Total Bilirubin 0.7 (0.2-1.3) mg/dL AST 37 (17-59) U/L ALT 24 (4-49) U/L Alkaline Phosphatase 74 (38-126) U/L Troponin I (0.000-0.034) ng/mL Total Protein 6.6 (6.3-8.2) g/dL Albumin 3.7 (3.5-5.0) g/dL 09/13/23 Range/Units 13:56 WBC (3.8-10.6) k/uL RBC (4.30-5.90) m/uL Hgb (13.0-17.5) gm/dL Hct (39.0-53.0) % MCV (80.0-100.0) fL MCH (25.0-35.0) pg MCHC (31.0-37.0) g/dL RDW (11.5-15.5) % Plt Count (150-450) k/uL MPV Neutrophils % % Lymphocytes % % Monocytes % % Eosinophils % % Basophils % % Neutrophils # (1.3-7.7) k/uL Lymphocytes # (1.0-4.8) k/uL Monocytes # (0-1.0) k/uL Eosinophils # (0-0.7) k/uL Basophils # (0-0.2) k/uL PT (10.0-12.5) sec INR (<1.2) APTT (22.0-30.0) sec Sodium (137-145) mmol/L Potassium (3.5-5.1) mmol/L Chloride (98-107) mmol/L Carbon Dioxide (22-30) mmol/L Anion Gap mmol/L BUN (9-20) mg/dL Creatinine (0.66-1.25) mg/dL Est GFR (CKD-EPI)AfAm (>60 ml/min/1.73 sqM) Est GFR (CKD-EPI)NonAf (>60 ml/min/1.73 sqM) Glucose (74-99) mg/dL Calcium (8.4-10.2) mg/dL Magnesium (1.6-2.3) mg/dL Total Bilirubin (0.2-1.3) mg/dL AST (17-59) U/L ALT (4-49) U/L Alkaline Phosphatase (38-126) U/L Troponin I <0.012 (0.000-0.034) ng/mL Total Protein (6.3-8.2) g/dL Albumin (3.5-5.0) g/dL Disposition Clinical Impression: Vertigo, Bradycardia Disposition: HOME SELF-CARE Condition: Good Prescriptions: Meclizine [Antivert] 25 mg PO TID #20 tab Is patient prescribed a controlled substance at d/c from ED?: No Referrals: Ezequiel Blevins MD [Primary Care Provider] - 1-2 days Time of Disposition: 16:38
[2023-09-13 13:29] VITALS: RESP 18
[2023-09-13 14:09] LABS: Basophils # (A) 0.1 k/uL (0-0.2); Basophils % (A) 1 %; Eosinophils # (A) 0.1 k/uL (0-0.7); Eosinophils % (A) 1 %; HGB 12.8 gm/dL (13.0-17.5); Lymphocytes # (A) 0.7 k/uL (1.0-4.8); Lymphocytes % (A) 8 %; MCH 32.7 pg (25.0-35.0); MCHC 32.9 g/dL (31.0-37.0); MCV 99.2 fL (80.0-100.0); Mean Platelet Volume 8.6; Monocytes # (A) 0.3 k/uL (0-1.0); Monocytes % (A) 3 %; Neutrophils # (A) 7.6 k/uL (1.3-7.7); Neutrophils % (A) 87 %; Platelet Count 190 k/uL (150-450); RBC 3.93 m/uL (4.30-5.90); RDW 12.9 % (11.5-15.5); WBC 8.8 k/uL (3.8-10.6)
[2023-09-13] MEDS: METOCLOPRAMIDE 5 MG/ML 2 ML VIAL IVP STA (14:16)
[2023-09-13] MEDS: MECLIZINE 25 MG TAB PO STA (14:16)
[2023-09-13 14:18] LABS: INR 1.1 (<1.2); Partial Thromboplastin Time 23.3 sec (22.0-30.0); Prothrombin Time 11.5 sec (10.0-12.5)
[2023-09-13 14:33] LABS: ALT 24 U/L (4-49); AST 37 U/L (17-59); African American GFR (CKD) >90 (>60 ml/min/1.73 sqM); Albumin 3.7 g/dL (3.5-5.0); Alkaline Phosphatase 74 U/L (38-126); Anion Gap 2 mmol/L; Blood Urea Nitrogen 22 mg/dL (9-20); Calcium 8.9 mg/dL (8.4-10.2); Carbon Dioxide 28 mmol/L (22-30); Chloride 107 mmol/L (98-107); Glucose 115 mg/dL (74-99); Non-African American GFR(CKD) 80 (>60 ml/min/1.73 sqM); Potassium 4.7 mmol/L (3.5-5.1); Sodium 137 mmol/L (137-145); Total Bilirubin 0.7 mg/dL (0.2-1.3); Total Protein 6.6 g/dL (6.3-8.2)
--- NOTE | 2023-09-13 15:14 | XR ---
EXAMINATION TYPE: XR chest 2V DATE OF EXAM: 09/13/2023 COMPARISON: 03/21/2023 INDICATION: Chest pain TECHNIQUE: Frontal and lateral views of the chest are obtained. FINDINGS: The heart size is normal. The pulmonary vasculature is normal. Prior calcifications within the mediastinum and left lower lung field are again evident. IMPRESSION: 1. No acute pulmonary process. 2. Stable chronic changes
--- NOTE | 2023-09-13 15:45 | CT ---
EXAMINATION TYPE: CT brain wo con CT DLP: 1146.4 mGycm, Automated exposure control for dose reduction was used. DATE OF EXAM: 09/13/2023 3:27 PM COMPARISON: None.. CLINICAL INDICATION:Male, 88 years old with history of Dizziness, dizziness and syncope. TECHNIQUE: Brain: Axial CT images of the brain were obtained with coronal and sagittal reformats created and rev iewed. Contrast used: None. Oral contrast used: None. FINDINGS: Extra-axial spaces: No abnormal extra-axial fluid collections. Basilar cisterns are patent. Ventricular system: Ventricles appear dilated in proportion to the degree of cerebral atrophy. Cerebral parenchyma: No increased attenuation to suggest acute intraparenchymal hemorrhage. The gra y-white matter interface appears maintained. Moderate generalized brain atrophy. Scattered hypoatte nuating areas are seen within the cerebral white matter, nonspecific but most often seen with chronic microvascular ischemic changes; moderate in degree. Cerebellum: No acute abnormality. Mass effect: No evidence of mass effect or midline shift. Intracranial vasculature: Atherosclerotic calcifications of the larger arteries near the skull base. Soft tissues: No acute or concerning abnormality. Visualized orbits: Orbital contents appear grossly intact. Radiodensity consistent with prior surge ry along the anterior right globe. Calvarium/osseous structures: No evidence of calvarial fracture. Paranasal sinuses and mastoid air cells: Clear. MRI is more sensitive for detecting acute processes such as infarct, and may be considered if clinica lly warranted. IMPRESSION: 1. No CT evidence of an acute intracranial abnormality. 2. Atrophy and chronic microvascular ischemic white matter changes.
[2023-09-13 18:39] VITALS: BP 144/67; PULSE 60; TEMP 97.7
== END 2023-09-13 18:06 | disposition home or self-care (01) ==
LOC: EC 12:29
DX: R42 Dizziness and giddiness (principal); R00.1 Bradycardia, unspecified
CPT/HCPCS: 36415; 93005; 80053; 83735; 84484; 85025; 85610; 85730; 71046; 70450; 99285; 96374; J2765

== ENCOUNTER → 2023-09-21 | Outpatient (CLI) | payer MEDICARE, BC ==
--- NOTE | 2023-10-10 10:55 | CE ---
CARDIAC ELECTROPHYSIOLOGY REPORT STUDY PERFORMED: Lexiscan Cardiolite. INDICATIONS: Rule out cardiac arrhythmia. The patient was monitored for 10 days. The baseline rhythm appeared to be sinus mechanism with rare PACs and rare PVCs. No significant sinus pause or sinus arrest. No advanced AV block noted. CONCLUSION: 1. Sinus rhythm as a baseline mechanism. 2. Rare PACs and rare PVCs. 3. No significant sinus pause or sinus arrest noted. 4. No atrial fibrillation or atrial flutter. MMODL / IJN: [id number] /
== END | disposition home or self-care (01) ==
LOC: RADECHMAIN 07:46
PROVIDERS: ATTEND Family Medicine
DX: I49.1 Atrial premature depolarization (principal); I49.3 Ventricular premature depolarization; R00.1 Bradycardia, unspecified
CPT/HCPCS: 93270